=== PATIENT | female | born 1950 | race Caucasian/White ===

== ENCOUNTER → 2016-10-25 | Outpatient (CLI) | payer MEDICARE, OTHER | END | disposition home or self-care (01) | LOC: LAB.O 12:34 | PROVIDERS: ATTEND Otolaryngology | DX: D44.2 Neoplasm of uncertain behavior of parathyroid gland (principal); E21.0 Primary hyperparathyroidism ==

== ENCOUNTER → 2018-11-25 | Outpatient (CLI) | payer MEDICARE, OTHER ==
--- NOTE | 2018-11-27 14:00 | MAM ---
EXAM DESCRIPTION: 3D Screening BILATERAL : Digital Mammography. CLINICAL HISTORY: 68 years Female SCREENING . No complaints or personal history of breast cancer. Remote family history of breast cancer. Childbirth. Hysterectomy over 25 years ago. No HRT. Lifetime risk of developing breast cancer (Tyrer-Cuzick model)(%): 3.7. COMPARISON: 2-D digital screening bilateral mammography 10/29/2014.. TECHNIQUE: Bilateral CC and MLO projection full-field images, digital tomosynthesis mammographic technique. Bilateral digital 2-D full-field MLO images. CAD not available for tomosynthesis or 2-D images. FINDINGS: The breast parenchymal density pattern is: Scattered areas of fibroglandular density. No skin thickening or nipple retraction. Bilateral vascular calcifications have increased since the prior study. Solitary microcalcifications in the right breast. No new focal, stellate mass or density, focal asymmetry , and no suspicious microcalcifications IMPRESSION: Benign exam. BIRAD CATEGORY: 2 BENIGN FINDINGS. RECOMMENDATIONS: FOLLOW UP: Routine digital bilateral mammographic screening, one year interval from November 2018. Written communication explaining the IMPRESSION and follow-up, will be mailed to the patient and referring health care provider. The FINDINGS and the FOLLOW-UP plan were reviewed in person with the patient after the examination. According to the [employer], yearly mammograms are recommended starting at age 40 and continuing as long as a woman is in good health. Any breast change noted on a breast self-exam should be reported promptly to the patient's healthcare provider. Breast MRI is recommended for women with an approximately 20-25% or greater lifetime risk of breast cancer, including women with a strong family history of breast or ovarian cancer and women who have been treated for Hodgkin's disease. A negative mammographic report should not delay tissue diagnosis in patients with significant clinical history or physical findings. Extremely dense breast tissue limits the sensitivity of digital mammography. Electronically signed by: Idris Oliva MD 11/27/2018 1:58 PM CDT
== END ==
LOC: MAMMO 09:30
PROVIDERS: ATTEND Emergency Medicine
DX: Z12.31 Encounter for screening mammogram for malignant neoplasm of breast (principal)

== ENCOUNTER → 2020-02-24 | Outpatient (CLI) | payer MEDICARE, OTHER ==
--- NOTE | 2020-02-25 12:57 | CT ---
Procedure: CT LUNG SCREENING Exam Date: February 24, 2020. Ordering Provider: BRIANDA BUSTOS Clinical Indication: PERSONAL HISTORY OF TOBACCO USE smoking cessation x5 years. 55 pack years. This patient meets eligibility criteria for low-dose CT lung cancer screening. Comparison: Baseline screening exam. Technique: Using a multislice scanner, sequential helical axial imaging was obtained in the thorax, 2.5 mm thickness, 2.5 mm separation, from the level of the thoracic inlet through the lung bases without IV contrast. A low dose protocol was utilized for BMI less than 30: BMI: 21.6. CTDI: 1.76 mGy. 120. kVp. 45 mA. DLP 68 mGy-cm. 2D sagittal and coronal reconstructed images, 6.0 mm thickness, were obtained. This exam was performed according to our departmental dose optimization program which includes use of automated exposure control, adjustment of the mA and/or kV according to patient size and/or use of iterative reconstruction technique. Nodule measurements under 10 mm are given as mean value of 3 axes diameters. FINDINGS: Lungs and large airways: Bilateral parenchymal blebs with scattered subpleural blebs bilaterally more prevalent in the upper lung smith. Few subpleural bulla. Subpleural 5 mm groundglass nodule superior segment right lower lobe on axial series 2, image 63. Smaller subpleural groundglass nodules and calcified nodules in the right lower lobe. Pleural parenchymal scarring inferior lingula and right middle lobe. Thickening of the lateral right major fissure and nodular scarring associated with air-filled cystlike structure lateral subpleural superior segment right lower lobe. Nodule diameters are 6.5 mm and 5.3 mm on images 2/58 and 2/60. No abnormal nodules and no mass. No focal or acute infiltrate. Pleura and space: Bilateral apical pleural thickening. Random focal thickening. Calcification right hemidiaphragm/pleura. No acute process. Mediastinum and manda: evaluation limited by low dose technique and lack of IV contrast. Small lymph nodes with no dominant soft tissue mass. Heart and great vessels: Coronary artery and aortic calcifications. Chest wall, lower neck, axillae: Evaluation also limited by same factors as described above. 1.5 cm low-density nodule anterior left lobe thyroid abutting the isthmus. Normal size axillary lymph nodes. Upper abdomen: Evaluation limited by low-dose technique. Liver cyst. No free air or free fluid in the included peritoneal space. Normal density and size of the adrenal glands and spleen. Osseous structures: Evaluation limited by low dose MIP technique. Multiple endplate sclerotic changes. Spondylosis cervical spine. IMPRESSION: 1. Subpleural solid nodules approximately 5-6 mm diameter versus nodular scarring associated with a postinflammatory cyst in the right lower lobe. Groundglass nodule also in the right lower lobe.. [facility] Best Practice Recommendations: please see below for Lung RADS category and FOLLOW-UP.* *Lung RADS category CATEGORY 3 - Probably benign (1-2% malignancy probability), short term follow-up suggested. NODULES: Solid nodule(s) 6mm (113.1 mm3) to less than 8mm (268.1 mm3) at baseline, or new 4mm (33.5 mm3) to under 6mm (113.1 mm3) solid nodule. Part solid nodule total diameter >= 6mm (113.1 mm3) with solid component less than 6mm, or new less than 6mm total diameter nodule] OR new <6 mm (113.1 mm3) total diameter. GGN >= 30 mm (>=23380 mm3) on baseline CT or new. FOLLOW-UP: Please return for a Low Dose Chest CT in 6 months for re-evaluation. Electronically signed by: Idris Oliva MD 02/25/2020 12:55 PM CDT
== END ==
LOC: CT 09:00
PROVIDERS: ATTEND Emergency Medicine
DX: Z87.891 Personal history of nicotine dependence (principal); Z12.2 Encounter for screening for malignant neoplasm of respiratory organs; R91.8 Other nonspecific abnormal finding of lung field